=== PATIENT | male | born 1935 | race Caucasian/White ===

== ENCOUNTER 2021-06-08 09:01 | Emergency (ER) | payer MEDICARE, OTHER | END 2021-06-08 13:26 | disposition home or self-care (01) | LOC: FER 09:01 | DX: T17.928A Food in respiratory tract, part unspecified causing other injury, initial encounter (principal); I10 Essential (primary) hypertension; F17.210 Nicotine dependence, cigarettes, uncomplicated | CPT/HCPCS: 71046 ==

== ENCOUNTER 2021-08-18 11:19 | Emergency (ER) | payer MEDICARE, OTHER ==
[2021-08-18 12:25] LABS: BASOPHIL 0.7 % (0-2); EOSINOPHIL 5.1 % (0-7); HCT 52.3 % (42.0-52.0); HGB 16.5 g/dl (13.2-18.0); LYMPHOCYTE 29.2 % (15-48); MCH 28.3 pg (25.0-31.0); MCHC 31.5 g/dL (32.0-36.0); MCV 89.6 fL (78.0-100.0); MONOCYTE 6.8 % (0-12); NEUTROPHIL 57.8 % (41-80); NRBC 0; PLT 459 K/uL (150-400); RBC 5.84 M/uL (4.70-6.00); RDW 15.8 % (11.5-14.0); WBC 12.5 K/uL (4.0-10.5)
[2021-08-18 12:42] LABS: INR 1.11 (0.9-1.2); PROTHROMBIN TIME 13.7 SECONDS (11.8-13.4); PTT 39.5 SECONDS (24.4-34.7)
[2021-08-18 12:53] LABS: ALBUMIN 3.6 g/dL (3.4-5.0); BILIRUBIN - TOTAL 0.6 mg/dL (0.2-1.0); BUN/CREAT RATIO (CALC) 14.6 RATIO; CREATININE 1.03 mg/dL (0.67-1.17); GLOBULIN (CALCULATION) 3.2 g/dL; POTASSIUM 4.1 mmol/L (3.5-5.1); TOTAL PROTEIN 6.8 g/dL (6.4-8.2)
== END 2021-08-18 13:56 | disposition home or self-care (01) ==
LOC: FER 11:19
PROVIDERS: Emergency Medicine
DX: G56.31 Lesion of radial nerve, right upper limb (principal); I10 Essential (primary) hypertension; F17.200 Nicotine dependence, unspecified, uncomplicated; Z86.73 Personal history of transient ischemic attack (TIA), and cerebral infarction without residual deficits; Z79.82 Long term (current) use of aspirin; Z79.899 Other long term (current) drug therapy; Z20.822 Contact with and (suspected) exposure to COVID-19
CPT/HCPCS: 36415; 70450; 71045; 80053; 82553; 84484; 85025; 85610; 85730; 93005; U0002